=== PATIENT | male | born 1955 | race Caucasian/White ===

== ENCOUNTER → 2023-09-03 08:40 | Outpatient (REF) | payer MEDICARE, OTHER, SELFPAY | LOC: RAD 08:40 | PROVIDERS: ATTENDING PHYSICIAN Internal Medicine | DX: E78.2 Mixed hyperlipidemia (principal); K21.9 Gastro-esophageal reflux disease without esophagitis; D18.01 Hemangioma of skin and subcutaneous tissue; H90.3 Sensorineural hearing loss, bilateral; R41.3 Other amnesia; Z82.49 Family history of ischemic heart disease and other diseases of the circulatory system; N40.0 Benign prostatic hyperplasia without lower urinary tract symptoms; Z00.00 Encounter for general adult medical examination without abnormal findings | CPT/HCPCS: 76770 ==

== ENCOUNTER → 2023-10-09 08:33 | Outpatient (REF) | payer MEDICARE, OTHER, SELFPAY | LOC: HWRAD 08:33 | PROVIDERS: ATTENDING PHYSICIAN Internal Medicine | DX: R31.29 Other microscopic hematuria (principal) | CPT/HCPCS: 76770 ==

== ENCOUNTER → 2024-09-24 09:50 | Outpatient (REF) | payer MEDICARE, OTHER, SELFPAY | LOC: RAD 09:50 | PROVIDERS: ATTENDING PHYSICIAN Internal Medicine | DX: R22.2 Localized swelling, mass and lump, trunk (principal); R07.89 Other chest pain | CPT/HCPCS: 71046 ==

== ENCOUNTER 2025-03-03 07:43 | Emergency (ER) | payer MEDICARE, OTHER, SELFPAY ==
[2025-03-03 07:46] VITALS: BP 129/82
[2025-03-03 08:11] VITALS: BMI 23.6
--- NOTE | 2025-03-03 08:19 | ED.GENMED ---
History of Present Illness
General
Chief Complaint: Chest Pain
Source: patient
Exam Limitations: none
Time Seen by Provider: 03/03/25 07:59
Nursing documentation reviewed up to this point in time: agreed with
History of Present Illness
History of Present Illness:
Patient status post COVID vaccination injection on his left arm, presents to ED after waking up this morning around 3 AM with chest pain, along with left arm pain. Patient denies having any symptoms when he first went to sleep at 11 PM. Chest pain
described as middle of chest, nonradiating, burning feeling, with intermittent shortness of breath, without any alleviating factors. Patient was able to go to bathroom and was able to fall back asleep. However, when he woke up at 6 AM, he still
experienced chest discomfort. He was able to take care of his morning activities, including push-up, which did not affect his chest pain. However, symptoms have gradually improved. At the time of evaluation in ED, patient states his chest pain
has resolved completely. Denies previous history of similar symptoms. Denies recent travel or surgery. Denies recent illness. Denies recent change in medications or diet. Patient does not drink alcohol but vapes intermittently. Denies family
history of heart disease. Denies back pain. Denies leg pain or swelling.
Past History
Past History
ED Past Medical History: Hypercholesterolemia
ED Past Surgical History: None
Social History
Tobacco: Non-smoker
Alcohol: Occasional
Drug: Marijuana
Personal:
Living: with family
Employment: Employed
Family History
Family History: CAD and Other (Father with a AAA)
Review of Systems
Review of Systems
Allergies reviewed?: Yes
All Other Systems: ROS reviewed and negative except as documented in HPI and ROS
Constitutional: Reports no symptoms
Respiratory: Reports trouble breathing
Cardiac: Reports chest pain; Denies diaphoresis, palpitations or syncope
ABD/GI: Reports nausea
Musculoskeletal: Reports no symptoms
Skin: Reports no symptoms
Neurological: Reports no symptoms
Phy Exam
Physical Exam
Physical Exam:
Physical Exam
General: no apparent distress, not acutely ill. afebrile
Head: nc/at. eomi
Neck: supple. normal range of motion. no jvd
Heart: s1/s2 regular rate and rhythm, no murmur.
Lungs: no acute respiratory distress. clear bilaterally. chest wall nontender to palpation
Abdomen: normal bowel sounds. not tender.
Neuro: alert and oriented x 3. no focal neurological deficits
Skin: no rash
Psychiatric: well kept. interactive and cooperative
Extremities: no edema. no calf tenderness.
Scores
Heart Score for Chest Pain Patients
STEMI patient?: No
History: Slightly or Non-Suspicious
ECG: Normal
Age: >/= 65 years
Risk Factors: 1 or 2 Risk Factors
Troponin: </= Normal Limit
Heart Score for Chest Pain Patients: 3
Heart Score Risk: 2.5% MACE over next 6 weeks
Course
Orders/Labs/Results
Orders:
Orders
03/03/25 07:44
Electrocardiogram (*1) Urgent
Reason for Study: Chest Pain
03/03/25 07:45
EKG- Treatment ONCE
03/03/25 08:14
Complete Blood Count/With Diff Urgent
Comprehensive Metabolic Panel Urgent
Lipase Urgent
Troponin I Urgent
03/03/25 08:19
CR Chest - 2 Views Urgent
Comment:
Reason For Exam: chest pain
03/03/25 09:33
EKG- Treatment ONCE
03/03/25 11:00
Electrocardiogram (*1) Urgent
Reason for Study: Chest Pain
Troponin I Urgent
Abnormal Lab Results
03/03/25
08:14
RBC 4.57 L 10^6/uL
(4.70-6.10)
Absolute Lymphs (auto) 0.9 L 10^3/uL
(1.2-3.4)
Lymphocytes % 17.0 L %
(20.5-51.1)
Monocytes % 11.2 H %
(1.7-9.3)
BUN 21 H mg/dl
(9-20)
Glucose 100 H mg/dl
(70-99)
Total Bilirubin 2.1 H mg/dl
(0.2-1.3)
03/03/25 08:14
03/03/25 08:14
Vital Signs
Initial and Last Documented VS:
Initial Vital Signs
Temp Pulse Resp BP Pulse Ox
97.7 F 85 18 129/82 99
03/03/25 07:46 03/03/25 07:46 03/03/25 07:46 03/03/25 07:46 03/03/25 07:46
Last Documented Vital Signs
Temp Pulse Resp BP Pulse Ox
97.7 F 68 11 120/75 100
03/03/25 07:46 03/03/25 11:30 03/03/25 11:30 03/03/25 11:00 03/03/25 11:15
MDM/Problems Addressed
MDM/Problems Addressed:
Patient remains asymptomatic, i.e. chest pain-free, during extended course of observation in the ED, along with unremarkable workup. Patient presenting symptoms, less likely ACS, but difficult to exclude entirely given his age. As such, after
discussion with patient, patient will be referred to cardiology via low risk chest pain hotline for an urgent outpatient consultation. Patient advised to return to ED with recurrent chest pain. Patient expressed understanding at time of discharge.
*Pulse Oximetry
SaO2: 99
Oxygen Mode of Delivery: Room air
Patient hypoxic: no
*EKG
Interpreted by ED Provider?: Yes
EKG Intrepretation Date: 03/03/25
Heart Rate: 69
Rate: normal
Rhythm: sinus
Paige: normal axis
Interval: normal interval
*Critical Care Note
Total Time (30-74mins, 75-104mins- exclusive of procedures): Not Applicable
ED Attending Note
-
Portions of this chart may have been created with voice recognition software.� Occasional wrong word or��sound alike� substitutions may have occurred due to the inherent limitations of voice recognition software.
Discharge Plan
Departure
Patient Disposition: Home (Routine Discharge)
Date of Disposition: 03/03/25
Time of Disposition: 11:47
Patient with high blood pressure during this ER visit?: Yes
Condition: Fair
Discharge Problem:
Chest pain
Instructions: Chest Pain CBC Follow Up
Prescriptions:
No Action
coenzyme C14-wuxgspl E 1 CAP capsule
1 cap PO DAILY
Multiple Vitamins
1 tab PO DAILY
simvastatin 20 MG tablet
20 mg PO QPM
aspirin 81 MG tablet,chewable
81 mg PO DAILY
hydrocodone-acetaminophen [Vicodin] 1 EACH tablet
1 ea PO Q4HPRN PRN (Reason: pain) Qty: 20 0RF
Referrals:
Jude Jarrett MD [Active, Cardiology]
Domenico Garcia MD [Family Provider, Internal Medicine]
Activity Restrictions/Additional Instructions:
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 Please return to ED with recurrent chest pain.
Interventions
Interventions:
*Risk Screen - Suicide Last Done: 03/03/25 07:46
*General Assessment Last Done: 03/03/25 07:46
*Neglect/Abuse Screening Last Done: 03/03/25 07:46
*ED- Fall Risk Assessment Last Done: 03/03/25 08:11
*ED COVID-19 Vaccine History Last Done: 03/03/25 08:11
*Nursing Disposition Last Done: 03/03/25 11:57
ED- Cardiac Assessment Last Done: 03/03/25 08:11
Discharge Date and Time
Discharge Date/Time: 03/03/25 11:57
Print Language: MALAY
[2025-03-03 08:24] VITALS: BP 128/87
[2025-03-03 08:33] LABS: Hematocrit 41.8 % (39.0-52.0); Hemoglobin 13.9 g/dL (13.0-18.0); Mean Corp Hgb Conc. 33.3 g/dL (33.0-37.0); Mean Corpuscular Volume 91.5 fL (80.0-94.0); Nucleated Red Blood Cells % 0 % (-); Platelet Count 146 10^3/uL (130-400); Red Cell Dist. Width 12.4 % (11.5-14.5)
[2025-03-03 08:36] LABS: ALT (SGPT) 20 U/L (0-50); AST (SGOT) 24 U/L (17-59); Albumin 4.1 g/dl (3.5-5.0); Alkaline Phosphatase 45 U/L (38-126); Blood Urea Nitrogen 21 mg/dl (9-20); Calcium 9.1 mg/dl (8.4-10.2); Carbon Dioxide 29 mmol/L (22-30); Chloride 105 mmol/L (98-107); Estimated Creatinine Clearance 64 ml/min; Glucose 100 mg/dl (70-99); Lipase 107 U/L (23-300); Potassium 4.0 mmol/L (3.5-5.1); Sodium 138 mmol/L (135-145); Total Protein 6.8 g/dl (6.3-8.2); eGFR > 60.00
[2025-03-03 08:47] LABS: Troponin I < 0.012 ng/ml
[2025-03-03 09:11] VITALS: BP 119/78
[2025-03-03 10:00] VITALS: BP 125/96
[2025-03-03 11:00] VITALS: BP 120/75
[2025-03-03 11:32] LABS: Troponin I < 0.012 ng/ml
== END 2025-03-03 11:57 | disposition home or self-care (01) ==
LOC: EMR 07:43
PROVIDERS: EMERGENCY PHYSICIAN Emergency Medicine; FAMILY PHYSICIAN Internal Medicine
DX: R07.9 Chest pain, unspecified (principal); R03.0 Elevated blood-pressure reading, without diagnosis of hypertension; E78.00 Pure hypercholesterolemia, unspecified; Z82.49 Family history of ischemic heart disease and other diseases of the circulatory system
CPT/HCPCS: 99284; 71046; 80053; 83690; 84484; 85025; 93005

== ENCOUNTER → 2025-03-07 07:23 | Outpatient (REF) | payer MEDICARE, OTHER, SELFPAY | LOC: RCS 07:23 | PROVIDERS: ATTENDING PHYSICIAN Internal Medicine Cardiovascular Disease | DX: R07.89 Other chest pain (principal) | CPT/HCPCS: 93306 ==

== ENCOUNTER → 2025-03-09 13:45 | Outpatient (REF) | payer MEDICARE, OTHER, SELFPAY | LOC: RCS 13:45 | PROVIDERS: ATTENDING PHYSICIAN Internal Medicine Cardiovascular Disease; FAMILY PHYSICIAN Internal Medicine | DX: R07.89 Other chest pain (principal) | CPT/HCPCS: 93017 ==

== ENCOUNTER 2025-05-04 06:27 | Day surgery (SDC) | payer MEDICARE, OTHER, SELFPAY | END 2025-05-04 14:52 | disposition home or self-care (01) | LOC: GI 06:27 | PROVIDERS: ATTENDING PHYSICIAN Internal Medicine Gastroenterology | DX: Z12.11 Encounter for screening for malignant neoplasm of colon (principal); K64.8 Other hemorrhoids; K57.30 Diverticulosis of large intestine without perforation or abscess without bleeding; Z86.0100 Personal history of colon polyps, unspecified | CPT/HCPCS: G0105 ==